=== PATIENT | male | born 1970 | race African-American/Black ===

== ENCOUNTER 2017-12-11 21:39 | Emergency (ER) | payer OTHER ==
[2017-12-11] MEDS: amLODIPine BESYLATE 5 MG TABLET PO ×2 (22:45)
[2017-12-11 23:50] LABS: ADD MAN DIFF? NO
[2017-12-11 23:53] LABS: BASO # 0.1 x10^3/uL (0.0-0.2); BASO % 1 % (0-3); EOS # 0.1 x10^3/uL (0.0-0.7); EOS % 2 % (0-3); HEMATOCRIT 36.3 % (39.0-53.0); HEMOGLOBIN 11.9 g/dL (13.0-17.5); LYMPH # 0.7 x10^3/uL (1.0-4.8); LYMPH % 15 % (24-48); MEAN CORPUSCULAR HEMOGLOBIN 27 pg (25-35); MEAN CORPUSCULAR HGB CONC 33 g/dL (31-37); MEAN CORPUSCULAR VOLUME 81 fL (79-100); MONO # 0.5 x10^3/uL (0.0-1.1); MONO % 10 % (0-9); NEUT # 3.5 x10^3uL (1.8-7.7); NEUT % 73 % (31-73); PLATELET COUNT 236 x10^3/uL (140-400); RED BLOOD COUNT 4.49 x10^6/uL (4.30-5.70); RED CELL DISTRIBUTION WIDTH 14.4 % (11.5-14.5); WHITE BLOOD COUNT 4.9 x10^3/uL (4.0-11.0)
[2017-12-12] LABS: ANION GAP 10 (6-14); BLOOD UREA NITROGEN 53 mg/dL (8-26); BUN/CREATININE RATIO 20 (6-20); CALCIUM 8.3 mg/dL (8.5-10.1); CARBON DIOXIDE 25 mmol/L (21-32); CHLORIDE 104 mmol/L (98-107); CREATININE 2.6 mg/dL (0.7-1.3); GFR 32.5; GLUCOSE 123 mg/dL (70-99); POTASSIUM 4.3 mmol/L (3.5-5.1); SODIUM 139 mmol/L (136-145)
[2017-12-12 00:06] LABS: ALBUMIN 2.7 g/dL (3.4-5.0); ALBUMIN/GLOBULIN RATIO 0.8 (1.0-1.7); ALK PHOS 94 U/L (46-116); ALT (SGPT) 61 U/L (16-63); AST (SGOT) 24 U/L (15-37); TOTAL BILIRUBIN 0.2 mg/dL (0.2-1.0); TOTAL PROTEIN 6.1 g/dL (6.4-8.2)
[2017-12-12 00:43] LABS: POC GLUCOSE 117 mg/dL (70-99)
== END 2017-12-12 01:00 | disposition left against medical advice (07) ==
LOC: ER 12-12 01:00
DX: I10 Essential (primary) hypertension (principal); N17.9 Acute kidney failure, unspecified; E11.9 Type 2 diabetes mellitus without complications; Z91.19 Patient's noncompliance with other medical treatment and regimen; Z79.01 Long term (current) use of anticoagulants
CPT/HCPCS: 36415; 80053; 82962; 85025; 93005; 99285-25

== ENCOUNTER → 2021-03-14 | Outpatient (CLI) | payer OTHER ==
[2017-12-12 00:13] VITALS: BP 200/101
[~2021-03-14] MED LIST: AMLO-186 PO; ATOR40TA59 PO; FURO40TA4 PO; GLIM4TAB8 PO; LINA5TAB PO; LISI1TAB37 PO; METO-239 PO; OXYC-325 PO; PATI8.4P PO
== END ==
LOC: LAB 15:36
PROVIDERS: ATTEND Surgery
DX: Z01.812 Encounter for preprocedural laboratory examination (principal); Z20.822 Contact with and (suspected) exposure to COVID-19; N19 Unspecified kidney failure
CPT/HCPCS: U0003; U0005

== ENCOUNTER 2021-03-16 09:51 | Day surgery (SDC) | payer OTHER ==
[~2021-03-16] VITALS: Ht 177.8 cm; Wt 82.0 kg
[~2021-03-16 09:51] MED LIST changes: +HEPARIN SODIUM 1,000 UNIT in IV NORMAL SALINE 100ML 100 ML IRR ONE; +HYDROmorphone 2 MG/ML VIAL IVP PRN; +IV RINGERS,LACTATED 1000ML 1,000 ML IV SCH; +MORPHINE SULFATE 2 MG/ML VIAL. IVP PRN; -OXYC-325 PO; +PROCHLORPERAZINE 10 MG/2 ML VIAL. IVP PRN; +fentaNYL PF VIAL 100 MCG/2 ML VIAL IVP PRN
[2021-03-16] MEDS ORDERED: INSULIN LISPRO 100 UNIT/ML 3ML VIAL for OP,RR ONLY. SQ PRN (10:45)
[2021-03-16] MEDS ORDERED: INSULIN LISPRO 100 UNIT/ML 3ML VIAL for OP,RR ONLY. SQ ONE (11:10)
[2021-03-16] MEDS ORDERED: IV NORMAL SALINE 1000ML BAG 1,000 ML IV SCH (11:15)
[2021-03-16] MEDS ORDERED: ROCURONIUM 50 MG/5 ML VIAL. ONE (12:15)
[2021-03-16] MEDS ORDERED: fentaNYL PF VIAL 100 MCG/2 ML VIAL ONE (12:15)
[2021-03-16] MEDS ORDERED: SEVOFLURANE 61 TO 120 MINUTES. IH ONE (12:16)
[2021-03-16] MEDS ORDERED: DEXAMETHASONE SOD PHOS 4 MG/ML VIAL ONE (12:16)
[2021-03-16] MEDS ORDERED: PROPOFOL 10 MG/ML (20ML) VIAL. IV ONE (12:16)
[2021-03-16] MEDS ORDERED: ONDANSETRON PF 4 MG/2 ML VIAL. ONE (12:16)
[2021-03-16] MEDS ORDERED: LIDOCAINE 2% PF 5 ML VIAL. ONE (12:18)
[2021-03-16] MEDS ORDERED: ePHEDrine PF IN SALINE 50 MG/10 ML SYRINGE. IV ONE (13:28)
[2021-03-16] MEDS ORDERED: GLYCOPYRROLATE 1 MG/5 ML VIAL. ONE (13:33)
[2021-03-16] MEDS ORDERED: NEOSTIGMINE METHYLSULFATE 5 MG/5 ML SYRINGE. ONE (13:33)
--- NOTE | 2021-03-16 14:16 | PDOC4 ---
Operative Note Operative Note OPERATIVE NOTE: PREOPERATIVE DIAGNOSIS: Renal failure. POSTOPERATIVE DIAGNOSIS: Renal failure. PROCEDURE: Laparoscopic peritoneal dialysis catheter placement. SURGEON: Klaus Rojo MD ANESTHESIA: General. ESTIMATED BLOOD LOSS: 10 mL. SPECIMENS: None. DRAINS: None. COMPLICATIONS: None. INDICATIONS: The patient is a 51-year-old male who was referred for placement of a peritoneal dialysis catheter due to progressive renal failure. The details and risks of surgery were discussed with the patient. The risks of surgery include bleeding, infection, visceral injury, pain, anesthetic risk, potential need for additional surgery or procedure. In addition, the patient is aware of the potential for catheter malfunction or dysfunction and possibility of needing revision, replacement, or removal of the catheter. They understand all this and would like to proceed. DESCRIPTION OF PROCEDURE: The patient was brought to the operating room and placed supine on the operating table. General anesthesia was performed. The abdomen was prepped with ChloraPrep and draped in a standard surgical manner. A small incision was made in the patient's left upper quadrant through which a visualized 5-mm trocar was inserted. A pneumoperitoneum was then created and the laparoscope was introduced. Initial inspection showed no significant adhesions or any other gross abnormalities. Using the placement template, the left abdomen was marked with a planned catheter exit site in the LLQ. A small incision was made to the left of the patient's midline at the marked location for the exit site of the cuff. An 8-mm trocar was inserted through this location. The coiled portion of the lower catheter was then inserted into the pelvis under direct visualization. The cuff was positioned in the rectus musculature. The coiled portion rested well in the inferior mid pelvis. The pneumoperitoneum was then relieved. An incision was then made in the left lower quadrant at the planned exit site. The proximal portion of the catheter was tunnelled subcutaneously to the exit site. The proximal cuff remained in the subcutaneous tissue a few cm away from the exit site. The catheter was then assembled to IV tubing and tested by infusing a liter of saline. The saline passed easily into the abdomen and the bag was placed on the floor. Nearly all of the saline readily was retrieved with prompt flow. The abdominal cavity was then reinsufflated and the laparoscope was reintroduced showing no change in the catheter position and the cuff remained in the rectus. The pneumoperitoneum was relieved and the ports were removed. The catheter was then assembled to the connector tubing as per the dialysis instructions. All the incision sites were closed with 4-0 Monocryl. Steri-Strips and sterile dressing were then applied. The patient tolerated procedure well and was sent to the recovery room in stable condition. At the end of the case all counts were correct. KLAUS ROJO MD March 16, 2021 14:16
--- NOTE | 2021-03-16 14:18 | DISCH ---
DISCHARGE INSTRUCTIONS Condition on Discharge Condition on Discharge: Stable Activity After Discharge Activity Instructions for Disc: Other, see below (no lifting over 20 lbs X 2 weeks) Diet after Discharge Diet after Discharge: Regular Wound Incision Care Wound/Incision Care: Other, see below (keep dressing clean and dry) Follow-Up Follow up with: Dialysis center/Nephrology; call for appointment ROSELINE ROJO MD March 16, 2021 14:18
[2021-03-16] MEDS ORDERED: LABETALOL 20 MG/4 ML DISP.SYRIN. IVP ONE (14:28)
[2021-03-16] MEDS ORDERED: OXYC-325 PO (14:53)
[2021-03-16] MEDS ORDERED: oxyCODONE/APAP 5/325 1 TAB TABLET PO ONE ×2 (15:00)
[2021-03-16] MEDS ORDERED: hydrALAZINE 20 MG/ML VIAL. ONE (15:18)
[2021-03-16] MEDS ORDERED: PROCHLORPERAZINE 10 MG/2 ML VIAL. ONE (15:27)
[2021-03-16] MEDS ORDERED: hydrALAZINE 20 MG/ML VIAL. IVP ONE (15:30)
[2021-03-16 15:40] VITALS: BP 131/68
== END 2021-03-16 16:12 | disposition home or self-care (01) ==
LOC: SURG 09:51
PROVIDERS: ATTEND Surgery
DX: I12.0 Hypertensive chronic kidney disease with stage 5 chronic kidney disease or end stage renal disease (principal); E11.22 Type 2 diabetes mellitus with diabetic chronic kidney disease; N18.6 End stage renal disease; E78.00 Pure hypercholesterolemia, unspecified; Z79.899 Other long term (current) drug therapy; Z98.890 Other specified postprocedural states; Z88.8 Allergy status to other drugs, medicaments and biological substances
CPT/HCPCS: 49324; 82962; A4213; A4314; A4364; A4930; A6219; A6402; C1752; J0360; J0690; J0780; J1100; J1644; J1815; J2405; J2704; J2710; J3010; J3490; A4452

== ENCOUNTER → 2021-03-16 | Outpatient (CLI) | payer OTHER ==
[2017-12-12 00:13] VITALS: BP 200/101
--- NOTE | 2021-03-16 10:27 | RAD ---
EXAM: Chest, 2 views. HISTORY: Chronic renal disease. COMPARISON: None. FINDINGS: 2 views of the chest are obtained. There is no infiltrate, pleural effusion or pneumothorax . The heart is normal in size. IMPRESSION: No acute pulmonary finding. Electronically signed by: Perri Alfredo MD (03/16/2021 10:25 AM) [id number]
== END ==
LOC: RAD 10:03
PROVIDERS: ATTEND Internal Medicine Nephrology
DX: I12.0 Hypertensive chronic kidney disease with stage 5 chronic kidney disease or end stage renal disease (principal); N18.5 Chronic kidney disease, stage 5
CPT/HCPCS: 71046

== ENCOUNTER 2021-03-17 11:23 | Emergency (ER) | payer OTHER ==
[~2021-03-17] VITALS: Ht 177.8 cm; Wt 82.0 kg
[~2021-03-17 11:23] MED LIST changes: -HEPARIN SODIUM 1,000 UNIT in IV NORMAL SALINE 100ML 100 ML IRR ONE; -HYDROmorphone 2 MG/ML VIAL IVP PRN; -IV RINGERS,LACTATED 1000ML 1,000 ML IV SCH; -MORPHINE SULFATE 2 MG/ML VIAL. IVP PRN; +OXYC-325 PO; -PROCHLORPERAZINE 10 MG/2 ML VIAL. IVP PRN; -fentaNYL PF VIAL 100 MCG/2 ML VIAL IVP PRN
[2021-03-17] MEDS ORDERED: LIDOCAINE 2% JELLY 6ML IN APPLICATOR. MM ONE (14:15)
[2021-03-17 14:25] LABS: BASO % 1 % (0-3); EOS % 0 % (0-3); HEMATOCRIT 35.8 % (39.0-53.0); HEMOGLOBIN 11.8 g/dL (13.0-17.5); LYMPH # 0.5 x10^3/uL (1.0-4.8); LYMPH % 7 % (24-48); MEAN CORPUSCULAR HEMOGLOBIN 26 pg (25-35); MEAN CORPUSCULAR HGB CONC 33 g/dL (31-37); MEAN CORPUSCULAR VOLUME 80 fL (79-100); MONO # 0.6 x10^3/uL (0.0-1.1); MONO % 7 % (0-9); NEUT # 6.7 x10^3/uL (1.8-7.7); NEUT % 85 % (31-73); PLATELET COUNT 241 x10^3/uL (140-400); RED CELL DISTRIBUTION WIDTH 15.4 % (11.5-14.5); WHITE BLOOD COUNT 7.8 x10^3/uL (4.0-11.0)
[2021-03-17 14:35] LABS: CALCIUM 9.2 mg/dL (8.5-10.1); GFR 10.2; POTASSIUM 5.1 mmol/L (3.5-5.1)
[2021-03-17 14:41] LABS: ALBUMIN/GLOBULIN RATIO 1.3 (1.0-1.7); TOTAL BILIRUBIN 0.3 mg/dL (0.2-1.0)
[2021-03-17 15:04] LABS: BILIRUBIN,URINE NEGATIVE (NEG); CLARITY,URINE CLEAR; COLOR,URINE YELLOW; NITRITE,URINE NEGATIVE (NEG); PROTEIN,URINE 100 mg/dL (NEG-TRACE); UROBILINOGEN,URINE 0.2 mg/dL (0.2 mg/dL)
[2021-03-17 15:08] LABS: RBC,URINE 0 /HPF (0-2); WBC,URINE OCC /HPF (0-4)
[2021-03-17 15:09] LABS: AMORPHOUS SEDIMENT,UR PRESENT /HPF; BACTERIA,URINE 0 /HPF (0-FEW); HYALINE CASTS, URINE FEW /HPF
--- NOTE | 2021-03-17 16:03 | PHYS DOC ---
Past Medical History Past Medical History: Diabetes-Type II, High Cholesterol, Hypertension Additional Past Medical Histor: CKD, "I'm on the kidney transplant list" Past Surgical History: Other Additional Past Surgical Histo: lasik, peritoneal dialysis catheter placement. Smoking Status: Never Smoker Alcohol Use: None Drug Use: None General Adult EDM: Chief Complaint: URINARY RETENTION HPI: HPI: Patient is a 51 year old male who presents with had a peritoneal catheter placed yesterday by Dr. Helm. Patient states he has not urinated since 8:00 yesterday morning. He states he called Dr. Helm and they stated to come to the ER. Patient rates his urinary bladder discomfort a 7 out of 10. He denies any actual pain. He sees Dr. Preciado from nephrology. Patient has a history of hypertension, diabetes, kidney failure and high cholesterol. Review of Systems: Review of Systems: Constitutional: Denies fever or chills. [] Eyes: Denies change in visual acuity. [] HENT: Denies nasal congestion or sore throat. [] Respiratory: Denies cough or shortness of breath. [] Cardiovascular: Denies chest pain or edema. [] GI: Denies abdominal pain, nausea, vomiting, bloody stools or diarrhea. + Bladder discomfort [] : Denies dysuria. + Urinary retention [] Musculoskeletal: Denies back pain or joint pain. [] Integument: Denies rash. [] Neurologic: Denies headache, focal weakness or sensory changes. [] Endocrine: Denies polyuria or polydipsia. [] Lymphatic: Denies swollen glands. [] Psychiatric: Denies depression or anxiety. [] Heart Score: C/O Chest Pain: No Risk Factors: Risk Factors: DM, Current or recent (<one month) smoker, HTN, HLP, family history of CAD, obesity. Risk Scores: Score 0 - 3: 2.5% MACE over next 6 weeks - Discharge Home Score 4 - 6: 20.3% MACE over next 6 weeks - Admit for Clinical Observation Score 7 - 10: 72.7% MACE over next 6 weeks - Early Invasive Strategies Current Medications: Current Medications Medications (Trade) Dose Ordered Sig/Rishabh Start Time Stop Time Status Last Admin Dose Admin Lidocaine HCl (Glydo (Lidocaine) Jelly) 1 vamshi 1X ONCE 03/17/21 14:15 03/17/21 14:16 DC 03/17/21 15:19 1 VAMSHI Allergies: Allergies: Allergies Coded Allergies Type Severity Reaction Last Updated Verified dulaglutide Adverse Reaction Intermediate Swelling 03/16/21 Yes Physical Exam: PE: Constitutional: Well developed, well nourished, no acute distress, non-toxic appearance. [] HENT: Normocephalic, atraumatic, bilateral external ears normal, oropharynx moist, no oral exudates, nose normal. [] Eyes: PERRLA, EOMI, conjunctiva normal, no discharge. [] Neck: Normal range of motion, no tenderness, supple, no stridor. [] Cardiovascular:Heart rate regular rhythm, no murmur [] Lungs & Thorax: Bilateral breath sounds clear to auscultation [] Abdomen: Bowel sounds normal, soft, generalized tenderness, no masses, no pulsatile masses. [] Skin: Warm, dry, no erythema, no rash. Laparoscopic incision puncture sites closed [] Back: No tenderness, no CVA tenderness. [] Extremities: No tenderness, no cyanosis, no clubbing, ROM intact, no edema. [] Neurologic: Alert and oriented X 3, normal motor function, normal sensory function, no focal deficits noted. [] Psychologic: Affect normal, judgement normal, mood normal. [] Current Patient Data: Labs: Laboratory Tests Test 03/17/21 14:19 03/17/21 14:50 White Blood Count 7.8 x10^3/uL (4.0-11.0) Red Blood Count 4.50 x10^6/uL (4.30-5.70) Hemoglobin 11.8 g/dL (13.0-17.5) L Hematocrit 35.8 % (39.0-53.0) L Mean Corpuscular Volume 80 fL (79-100) Mean Corpuscular Hemoglobin 26 pg (25-35) Mean Corpuscular Hemoglobin Concent 33 g/dL (31-37) Red Cell Distribution Width 15.4 % (11.5-14.5) H Platelet Count 241 x10^3/uL (140-400) Neutrophils (%) (Auto) 85 % (31-73) H Lymphocytes (%) (Auto) 7 % (24-48) L Monocytes (%) (Auto) 7 % (0-9) Eosinophils (%) (Auto) 0 % (0-3) Basophils (%) (Auto) 1 % (0-3) Neutrophils # (Auto) 6.7 x10^3/uL (1.8-7.7) Lymphocytes # (Auto) 0.5 x10^3/uL (1.0-4.8) L Monocytes # (Auto) 0.6 x10^3/uL (0.0-1.1) Eosinophils # (Auto) 0.0 x10^3/uL (0.0-0.7) Basophils # (Auto) 0.0 x10^3/uL (0.0-0.2) Platelet Estimate Pending Sodium Level 143 mmol/L (136-145) Potassium Level 5.1 mmol/L (3.5-5.1) Chloride Level 108 mmol/L (98-107) H Carbon Dioxide Level 20 mmol/L (21-32) L Anion Gap 15 (6-14) H Blood Urea Nitrogen 85 mg/dL (8-26) H Creatinine 7.0 mg/dL (0.7-1.3) H Estimated GFR (Cockcroft-Gault) 10.2 BUN/Creatinine Ratio 12 (6-20) Glucose Level 166 mg/dL (70-99) H Calcium Level 9.2 mg/dL (8.5-10.1) Total Bilirubin 0.3 mg/dL (0.2-1.0) Aspartate Amino Transferase (AST) 25 U/L (15-37) Alanine Aminotransferase (ALT) 26 U/L (16-63) Alkaline Phosphatase 94 U/L (46-116) Total Protein 7.0 g/dL (6.4-8.2) Albumin 4.0 g/dL (3.4-5.0) Albumin/Globulin Ratio 1.3 (1.0-1.7) Urine Collection Type U cath Urine Color Yellow Urine Clarity Clear Urine pH 5.0 (<5.0-8.0) Urine Specific [place] 1.010 (1.000-1.030) Urine Protein 100 mg/dL (NEG-TRACE) Urine Glucose (UA) 100 mg/dL (NEG) Urine Ketones (Stick) Negative mg/dL (NEG) Urine Blood Negative (NEG) Urine Nitrite Negative (NEG) Urine Bilirubin Negative (NEG) Urine Urobilinogen Dipstick 0.2 mg/dL (0.2 mg/dL) Urine Leukocyte Esterase Negative (NEG) Urine RBC 0 /HPF (0-2) Urine WBC Occ /HPF (0-4) Urine Transitional Epithelial Cells Few /LPF Urine Amorphous Sediment Present /HPF Urine Bacteria 0 /HPF (0-FEW) Urine Hyaline Casts Few /HPF Laboratory Tests 03/17/21 14:19 Laboratory Tests 03/17/21 14:19 Vital Signs: Vital Signs Date Time Temp Pulse Resp B/P (MAP) Pulse Ox O2 Delivery O2 Flow Rate FiO2 03/17/21 12:45 98.4 82 12 160/83 (108) 98 Room Air 98.4 EKG: EKG: [] Radiology/Procedures: Radiology/Procedures: [] Course & Med Decision Making: Course & Med Decision Making Pertinent Labs and Imaging studies reviewed. (See chart for details) See HPI. Alert and oriented x4. Ambulatory with steady gait. Abdomen is soft but slightly tender at laparoscopic incision sites that have edges approximated and no drainage or signs of infection. Patient is bladder scanned with 640 mL in the bladder. Leon catheter is placed. Patient will go home with a Leon catheter and follow-up with urology. Patient agrees to this. Urinalysis does not show any infection. [] Dragon Disclaimer: Dragon Disclaimer: This electronic medical record was generated, in whole or in part, using a voice recognition dictation system. Departure Departure Impression: Primary Impression: Urinary retention Disposition: 01 HOME / SELF CARE / HOMELESS Condition: STABLE Referrals: MAGGY DYER DO (PCP) Patient Instructions: Leon Catheter Care, Adult, Urinary Retention, Acute, Male Additional Instructions: Follow-up with urology [phone] in next week to have the catheter removed. Follow-up with Dr. Preciado as scheduled. TOR GARCIA APRN March 17, 2021 16:03
[2021-03-17 16:11] VITALS: BP 191/91
[2021-03-17 16:48] LABS: % BANDS 1 % (0-9); % BASOS 1 % (0-3); % LYMPHS 12 % (24-48); % MONOS 7 % (0-10); % SEGS 79 % (35-66); PLT ESTIMATE ADEQUATE (ADEQUATE)
== END 2021-03-17 17:02 | disposition home or self-care (01) ==
LOC: ER 11:23
DX: R33.9 Retention of urine, unspecified (principal); N32.89 Other specified disorders of bladder; E78.00 Pure hypercholesterolemia, unspecified; E11.22 Type 2 diabetes mellitus with diabetic chronic kidney disease; I12.9 Hypertensive chronic kidney disease with stage 1 through stage 4 chronic kidney disease, or unspecified chronic kidney disease; N18.9 Chronic kidney disease, unspecified; Z88.8 Allergy status to other drugs, medicaments and biological substances
CPT/HCPCS: 36415; 51702; 80053; 81001; 85007; 85025; 99285

== ENCOUNTER 2021-04-01 10:02 | Outpatient (CLI) | payer OTHER ==
[~2021-04-01] VITALS: Ht 177.8 cm; Wt 175.0 kg
[2021-04-01 10:44] VITALS: BP 117/73
[2021-04-01] MEDS ORDERED: IOHEXOL 240 MG/ML 50ML VIAL. ONE (10:58)
[2021-04-01 11:15] VITALS: BP 176/91
[2021-04-01] MEDS ORDERED: IOHEXOL 300 MG/ML 50 ML VIAL. IART ONE (11:15)
--- NOTE | 2021-04-01 12:00 | NUR ---
pt A&O . PD check done. redressed PD cath site. no issues per pt. pt allowed to ambulate out as he did not receive and sedation. Pt was informed that if the catheter continues to have drain issues that he needs to follow up with the surgeon
--- NOTE | 2021-04-04 09:10 | RAD ---
Fluoroscopic evaluation of peritoneal dialysis catheter April 01, 2021 INDICATION: Nonfunctional catheter Discussion: The procedure was explained in its entirety to the patient or the patients designated petroleum products sales representative by a member of the treatment team, including a discussion of the risks, benefits and commonly accepted alternatives to the procedure, as well as the expected consequences of no therapy whatsoever. Discussion of the risks included, but was not limited to, those that are most frequent and those that are rare but possibly severe or life-threatening, as well as the possibility of unforeseen complications. All elements of maximal sterile barrier technique including the use of a cap, mask, sterile gown, sterile gloves, large sterile sheet, appropriate hand hygiene, and 2% chlorhexidine for cutaneous antisepsis (or acceptable alternative antiseptic per current guidelines) were followed for this procedure. Fluoroscopic evaluation demonstrates the catheter be coiled in the central pelvis. Contrast was administered through the catheter demonstrating a somewhat loculated appearance in the pelvis. Eventually contrast seen spilling into the peritoneum/right pericolic gutter. A guidewire was advanced through the catheter straightening the catheter. The catheter was manipulated. Contrast appear appeared to more freely spill into the peritoneum. Spontaneous drainage noted. Total fluoroscopy time: 2.3 minutes Dose area product 6 Gycm2 Impression: Partially loculated appearance of fluid around the distal aspect of the peritoneal dialysis catheter may reflect adhesions. Following ambulation there is improved with persistent partial loculation, with improved drainage. Correlate with catheter function.
== END 2021-04-01 12:00 | disposition home or self-care (01) ==
LOC: INTRAD 10:02
PROVIDERS: ATTEND Surgery
DX: I12.0 Hypertensive chronic kidney disease with stage 5 chronic kidney disease or end stage renal disease (principal); N18.6 End stage renal disease; E78.00 Pure hypercholesterolemia, unspecified; T85.618A Breakdown (mechanical) of other specified internal prosthetic devices, implants and grafts, initial encounter; Z88.8 Allergy status to other drugs, medicaments and biological substances; Z79.899 Other long term (current) drug therapy; Z98.890 Other specified postprocedural states; X58.XXXA Exposure to other specified factors, initial encounter; Y93.89 Activity, other specified; Y92.89 Other specified places as the place of occurrence of the external cause; Y99.8 Other external cause status
CPT/HCPCS: 49400; 74190; C1769; Q9967